=== PATIENT | male | born 1970 | race Caucasian/White ===

== ENCOUNTER 2019-03-24 14:11 | Outpatient (CLI) | payer MEDICAID, SELFPAY ==
--- NOTE | 2019-03-24 14:30 | DI.RAD_ITS ---
EXAM: XR LUMBAR SPINE COMPLETE INDICATION: low back pain, M54.9, H/O BACK SURGERY. COMPARISON: No exams were available for comparison TECHNIQUE: 2D digital imaging was performed. FINDINGS: There are 5 lumbar-type vertebral bodies. Posterior spinal fusion is present from L4 through S1. The re does appear to be mild anterolisthesis of L5 on S1. No acute fracture or subluxation is seen. Mild to moderate degenerative changes are present throughout the lumbar spine. IMPRESSION: Mild to moderate degenerative changes seen in the lumbar spine. Postsurgical changes of spinal fusion from L4 through S1.
== END 2019-03-24 14:31 ==
PROVIDERS: PCP Nurse Practitioner; Visit Provider Nurse Practitioner
DX: M54.5 Low back pain (principal); Z98.1 Arthrodesis status; M47.897 Other spondylosis, lumbosacral region
CPT/HCPCS: 72110

== ENCOUNTER 2019-05-15 08:33 | Outpatient (CLI) | payer MEDICAID, SELFPAY ==
[2019-05-15 09:01] LABS: HCT 47.9 % (40.0-50.0); HGB 16.4 g/dL (13.5-17.5); Mean Corp. HGB Concentration 34.2 g/dL (32.0-36.0); Mean Corpuscular Hemoglobin 30.1 pg (27.0-33.0); Mean Corpuscular Volume 87.9 fL (80-95); Mean Platelet Volume 11.3 fL (8.0-11.0); Platelet Count 212 x1000/uL (130-400); RBC 5.45 m/cumm (4.50-6.00); White Blood Cell Count 10.17 k/cumm (4.4-10.8)
[2019-05-15 10:38] LABS: ALT 47 U/L (16-63); AST 19 U/L (15-37); Albumin 3.8 g/dL (3.4-5.0); Alkaline Phosphatase 88 U/L (46-116); Anion Gap 4.9 mmol/L (3-11); BUN 13 mg/dL (7-18); Bilirubin, Total 0.3 mg/dL (0.2-1.0); CO2 34.1 mmol/L (21.0-32.0); CREATININE 0.98 mg/dL (0.70-1.30); Calculated LDL 124 mg/dL; Chloride 101 mmol/L (98-107); Cholesterol 217 mg/dL (<200); Glucose 104 mg/dL (74-106); HDL Cholesterol 28 mg/dL (40-60); Potassium 4.4 mmol/L (3.5-5.1); Sodium 140 mmol/L (136-145); Total Protein 7.1 g/dL (6.4-8.2); Triglyceride 329 mg/dL (<150)
== END 2019-05-15 08:53 ==
PROVIDERS: PCP Nurse Practitioner; Visit Provider Nurse Practitioner
DX: G89.29 Other chronic pain (principal); M54.9 Dorsalgia, unspecified; Z72.0 Tobacco use; Z13.220 Encounter for screening for lipoid disorders
CPT/HCPCS: 36415; 80053; 80061; 85027